=== PATIENT | female | born 1955 | race African-American/Black ===

== ENCOUNTER → 2017-01-05 | Outpatient (CLI) | payer MEDICARE, MEDICAID ==
[~2017-01-05] MED LIST: BACT800T5 PO; FLUT1SPR9 EACH NARE; HYDR25TA5 PO; IBUP-232 PO; LISI-519 PO; PANT40TA3 PO; TIZA2CAP3 PO; TRAM50TA PO
[2017-01-05 12:19] LABS: ANION GAP 4 MEQ/L (5-15); AST (GOT) 18 U/L (15-37); BICARBONATE 35.4 MEQ/L (21.0-32.0); BLOOD UREA NITROGEN 13 MG/DL (7-18); CHLORIDE 104 MEQ/L (98-107); GLOMERULAR FILTRATION RATE 64 ML/MIN (>89); GLUCOSE,FASTING 87 MG/DL (74-99); POTASSIUM 3.4 MEQ/L (3.5-5.1); SODIUM (NA) 143 MEQ/L (136-145)
[2017-01-05 12:31] LABS: ALKALINE PHOSPHATASE 98 U/L (45-117); ALT (GPT) 28 U/L (10-53); FREE T4 0.88 NG/DL (0.76-1.46); HDL CHOLESTEROL 74.7 MG/DL (40.0-60.0); LDL CHOLESTEROL 97 MG/DL (0-99); TOTAL BILIRUBIN ADULT 0.2 MG/DL (0.2-1.0)
== END ==
LOC: CLAB 11:21
DX: E04.9 Nontoxic goiter, unspecified (principal); R73.03 Prediabetes
CPT/HCPCS: 36415; 80053; 80061; 84439; 84443

== ENCOUNTER 2018-01-19 01:04 | Observation (INO) | payer MEDICARE, MEDICAID ==
[~2018-01-19] VITALS: Ht 154.9 cm; Wt 65.0 kg
[2018-01-19 01:08] VITALS: BP 185/93; PULSE 79; RESP 20; TEMP 98.2; O2SAT 95
--- NOTE | 2018-01-19 01:16 | PD ---
HPI . CP and left arm pain Chief Complaint: Respiratory Symptoms Time Seen by Provider: 01:10 Travel History International Travel<30 days: No Contact w/Intl Traveler<30days: No Traveled to known affect area: No History of Present Illness HPI Pt has COPD Hx and now arrive to ER complaining of CP and left arm numbness and leg numbess and SOB , recently arrived to [place] from [place] via a 20 [address] train ride, pt has radiating pain left sided and CP , she says she was told it was pinched nerves, but not responding to OTC meds . PFSH Past Medical History Arthritis: Yes (RA) Asthma: Yes Bipolar Disorder: Yes Cancer: No Cardiovascular Problems: No High Cholesterol: Yes COPD: Yes Diabetes: No Diminished Hearing: No Endocrine: No Gastrointestinal Disorders: Yes (PANCREATITIS) GERD: Yes Genitourinary: No Hepatitis: No Hiatal Hernia: No Hypertension: Yes Immune Disorder: Yes (RHEUMTAOID ARTHRITIS) Medical other: No Musculoskeletal: Yes (PROTRUDING DISK IN BACK) Neurologic: Yes (NUMBNESS IN HANDS; TINGLING IN LEGS & FEET ) Psychiatric: Yes (BIPOLAR ) Respiratory: Yes (COPD) Immunizations Current: Yes Migraines: Yes Pancreatitis: Yes Thyroid Disease: No Tetanus Vaccination: > 5 Years Influenza Vaccination: No PNEUMOCCOCAL Vaccine (Year): 2 ?: Not Menopausal: Yes Tubal Ligation: Yes Past Surgical History Abdominal Surgery: No AICD: No Body Medical Devices: NONE Cardiac Surgery: No Ear Surgery: No Endocrine Surgery: No Eye Surgery: No Genitourinary Surgery: No Gynecologic Surgery: Yes (1975 ) Joint Replacement: No Neurologic Surgery: No Oral Surgery: No Pacemaker: No Thoracic Surgery: No Family History Family Myocardial Infarction: Yes Social History Alcohol Use: No Tobacco Use: Yes ("1 PACK PER WEEK") Substance Use: Yes (HX OF CRACK, MARIJUANA,) Allergies-Medications (Allergen,Severity, Reaction): Coded Allergies: bee venom protein (honey bee) (Unverified Allergy, Intermediate, 03/15/17) throat swelling penicillin G (Unverified Allergy, Mild, HIVES, 03/15/17) Reported Meds & Prescriptions Reported Meds & Active Scripts Active Flonase Allergy Relief Children Nasal [place] (Fluticasone Nasal [place]) 50 Mcg/ Act [place] 2 [place] EACH NARE DAILY 50 mcg/spray Reported Hydrochlorothiazide 25 Mg Tab 25 Mg PO DAILY Lisinopril 5 Mg Tab 5 Mg PO DAILY Pantoprazole (Pantoprazole Sodium) 40 Mg Tab 40 Mg PO DAILY Tramadol (Tramadol HCl) 50 Mg Tab 50 Mg PO BID PRN Tizanidine (Tizanidine HCl) 2 Mg Cap 2 Mg PO TID Physical Exam Narrative General: No fatigue, weakness, fever, or chills. Recently traveled from [place] by training. HEENT: No [place], no vision changes, no nasal congestion or drainage, no dysphasia CV: Continues to have chest pain as stated above. Nothing makes pain better or worse. RESP: History of COPD, mild dyspnea, no wheeze. History of COPD and current smoker. GI: No nausea, vomiting, bowel changes, diarrhea, constipation, pain, distention , melena, or blood in the stool. : No dysuria, urgency, frequency EXT: No lower leg edema MS: Left arm, shoulder, and cervical pain, recently diagnoses with possible pinched nerve. No recent injury or change in ROM NEURO: No difficulty with balance, LOC, or motor/sensory deficits PSYCH: No anxiety, depression, or suicidal ideation SKIN: No rashes, no concerning lesions Data Data Last Documented VS Orders Orders Complete Blood Count With Diff (01/19/18 01:16) Comprehensive Metabolic Panel (01/19/18 01:16) Creatine Kinase (Cpk) (01/19/18 01:16) Ckmb (Isoenzyme) Profile (01/19/18 01:16) Troponin I (01/19/18 01:16) Lipase (01/19/18 01:16) Urinalysis - C+S If Indicated (01/19/18 01:16) D-Dimer (01/19/18 01:16) Ketorolac Inj (Toradol Inj) (01/19/18 01:45) Famotidine Inj (Pepcid Inj) (01/19/18 01:45) CKMB (01/19/18 01:45) CKMB% (01/19/18 01:45) Admit Order (Ed Use Only) (01/19/18 03:13) Place In Observation (01/19/18 03:15) Activity Bed Rest With Brp (01/19/18 03:15) Vital Signs (Adult) Q4H (01/19/18 03:15) Cardiac Rhythm .As Directed (01/19/18 03:15) Notify Dr: Other .PRN (01/19/18 03:15) Notify DrVinnie Parameters (01/19/18 03:15) Resp Oxygen Nasal Cannula (01/19/18 ) Ckmb (Isoenzyme) Profile (01/19/18 03:15) Ckmb (Isoenzyme) Profile (01/19/18 06:15) Troponin I (01/19/18 03:15) Troponin I (01/19/18 06:15) ^ Obtain (01/19/18 03:15) Sodium Chloride 0.9% Flush (Ns Flush) (01/19/18 03:15) Sodium Chloride 0.9% Flush (Ns Flush) (01/19/18 09:00) Field Operations Supervisor / Telemetry SLOAN.Q8H (01/19/18 03:15) Labs Laboratory Tests Test 01/19/18 01:45 White Blood Count 8.7 TH/MM3 Red Blood Count 4.44 MIL/MM3 Hemoglobin 12.5 GM/DL Hematocrit 37.1 % Mean Corpuscular Volume 83.5 FL Mean Corpuscular Hemoglobin 28.1 PG Mean Corpuscular Hemoglobin Concent 33.6 % Red Cell Distribution Width 14.2 % Platelet Count 296 TH/MM3 Mean Platelet Volume 8.0 FL Neutrophils (%) (Auto) 69.4 % Lymphocytes (%) (Auto) 23.8 % Monocytes (%) (Auto) 5.7 % Eosinophils (%) (Auto) 0.5 % Basophils (%) (Auto) 0.6 % Neutrophils # (Auto) 6.0 TH/MM3 Lymphocytes # (Auto) 2.1 TH/MM3 Monocytes # (Auto) 0.5 TH/MM3 Eosinophils # (Auto) 0.0 TH/MM3 Basophils # (Auto) 0.1 TH/MM3 CBC Comment DIFF FINAL Differential Comment D-Dimer Quantitative (PE/DVT) 0.48 MG/L FEU Blood Urea Nitrogen 15 MG/DL Creatinine 0.67 MG/DL Random Glucose 80 MG/DL Total Protein 7.7 GM/DL Albumin 3.8 GM/DL Calcium Level 10.0 MG/DL Alkaline Phosphatase 151 U/L Aspartate Amino Transf (AST/SGOT) 21 U/L Alanine Aminotransferase (ALT/SGPT) 26 U/L Total Bilirubin 0.5 MG/DL Sodium Level 139 MEQ/L Potassium Level 3.6 MEQ/L Chloride Level 104 MEQ/L Carbon Dioxide Level 25.0 MEQ/L Anion Gap 10 MEQ/L Estimat Glomerular Filtration Rate 108 ML/MIN Total Creatine Kinase 177 U/L Creatine Kinase MB 2.3 NG/ML Troponin I LESS THAN 0.02 NG/ML Lipase 67 U/L [facility] Medical Decision Making Medical Screen Exam Complete: Yes Emergency Medical Condition: Yes Medical Record Reviewed: Yes Interpretation(s) EKG NSR rate 79 normal except biphasic T wave in lead V2 Differential Diagnosis GENERAL: looks uncomfort SKIN: Warm and dry. HEAD: Atraumatic. Normocephalic. EYES: Pupils equal and round. No scleral icterus. No injection or drainage. ENT: No nasal bleeding or discharge. Mucous membranes pink and moist. NECK: Trachea midline. No JVD. CARDIOVASCULAR: Regular rate and rhythm. RESPIRATORY: No accessory muscle use. Clear to auscultation. Breath sounds equal bilaterally. GASTROINTESTINAL: Abdomen soft, non-tender, nondistended. Hepatic and splenic margins not palpable. MUSCULOSKELETAL: Extremities without clubbing, cyanosis, or edema. No obvious deformities. NEUROLOGICAL: Awake and alert. No obvious cranial nerve deficits. Motor grossly within normal limits. Five out of 5 muscle strength in the arms and legs. Normal speech. PSYCHIATRIC: Appropriate mood and affect; insight and judgment normal. Narrative Course ekg labs medication given for arm and neck pain , feels moderate relief and then admitted for CP and rule out with serial troponin Diagnosis Primary Impression: Chest pain Admitting Information Admitting Physician Requests: Observation Christ Hernandez MD Jan 19, 2018 01:16
[2018-01-19] MEDS ORDERED: FAMOTIDINE 20 MG/2 ML VIAL IV PUSH SCH (01:45)
[2018-01-19] MEDS ORDERED: KETOROLAC TROMETHAMINE 30 MG/ML (IVP) VIAL IV PUSH ONE (01:45)
[2018-01-19 01:51] LABS: BASOPHIL # 0.1 TH/MM3 (0-0.2); BASOPHIL % 0.6 % (0.0-2.0); EOSINOPHIL % 0.5 % (0.0-4.0); HEMATOCRIT 37.1 % (35.0-46.0); HEMOGLOBIN 12.5 GM/DL (11.6-15.3); LYMPH % 23.8 % (9.0-44.0); LYMPHOCYTE # 2.1 TH/MM3 (1.0-4.8); MEAN CELL VOLUME 83.5 FL (80.0-100.0); MEAN CORPUSCULAR HEMOGLOBIN 28.1 PG (27.0-34.0); MEAN CORPUSCULAR HGB CONC 33.6 % (32.0-36.0); MONO % 5.7 % (0.0-8.0); MONOCYTE # 0.5 TH/MM3 (0-0.9); NEUT % 69.4 % (16.0-70.0); PLATELET COUNT 296 TH/MM3 (150-450); RED BLOOD COUNT 4.44 MIL/MM3 (4.00-5.30); RED CELL DISTRIBUTION WIDTH 14.2 % (11.6-17.2); WHITE BLOOD COUNT 8.7 TH/MM3 (4.0-11.0)
[2018-01-19 02:17] LABS: ALBUMIN 3.8 GM/DL (3.4-5.0); ALT (GPT) 26 U/L (10-53); AST (GOT) 21 U/L (15-37); BLOOD UREA NITROGEN 15 MG/DL (7-18); CHLORIDE 104 MEQ/L (98-107); CREATININE 0.67 MG/DL (0.50-1.00); GLOMERULAR FILTRATION RATE 108 ML/MIN (>89); GLUCOSE,RANDOM 80 MG/DL (74-106); SODIUM (NA) 139 MEQ/L (136-145)
[2018-01-19 02:22] LABS: ALKALINE PHOSPHATASE 151 U/L (45-117); TOTAL BILIRUBIN ADULT 0.5 MG/DL (0.2-1.0); TOTAL PROTEIN 7.7 GM/DL (6.4-8.2); TROPONIN I LESS THAN 0.02 NG/ML (0.02-0.05)
[2018-01-19] MEDS ORDERED: SODIUM CHLORIDE 0.9% FLUSH 10 ML FLUSH IV FLUSH PRN (03:15)
[2018-01-19 03:19] VITALS: O2SAT 99
[2018-01-19 03:28] VITALS: BP 160/84; PULSE 64; RESP 18; O2SAT 98
[2018-01-19] MEDS ORDERED: ASPIRIN 81 MG CHEW TAB CHEW ONE (04:00)
[2018-01-19 04:56] LABS: BACTERIA, URINE RARE /hpf; BILIRUBIN, URINE NEG (NEG); BLOOD, URINE SMALL (NEG); GLUCOSE,URINE NEG (NEG); KETONE, URINE NEG (NEG); MUCUS URINE FEW /lpf (OCC); NITRITE,URINE NEG (NEG); SQUAMOUS EPITHELIAL CELL URINE 1 /hpf (0-5); URINE COLOR Straw (YELLW/STRAW); URINE LEUKOCYTE ESTERASE NEG (NEG)
[2018-01-19 05:21] LABS: TROPONIN I LESS THAN 0.02 NG/ML (0.02-0.05)
[2018-01-19 06:37] VITALS: BP 162/79; PULSE 69; RESP 18; O2SAT 98
--- NOTE | 2018-01-19 08:04 | HHI.HP ---
HPI Primary Care Physician Dr. Tyler Finn Chief Complaint Chest pain History of Present Illness 62 year old female with history of COPD, HLD, and RA presents to ER with multiple complaints. Onset of chest pain 2 months. Location substernal. Characterized as squeezing and tightness. Unsure if there is a radiation component due to current "pinched nerve" and x2 weeks of left arm, left shoulder , and left sided neck pain. Associated symptoms of dyspnea. No nausea, vomiting , of diaphoresis. No precipitating or relieving factors. Duration constant. While visiting in [place] recently seen in ER for similar complaints. Reports "multiple tests" completed. Cannot elaborate on type of testing, just remembers being told she has a 'pinched nerve." Unclear if cardiac testing completed while in [place]. Review of Systems General: No fatigue, weakness, fever, or chills. Recently traveled from [place] by training. HEENT: No [place], no vision changes, no nasal congestion or drainage, no dysphasia CV: Continues to have chest pain as stated above. Nothing makes pain better or worse. RESP: History of COPD, mild dyspnea, no wheeze. History of COPD and current smoker. GI: No nausea, vomiting, bowel changes, diarrhea, constipation, pain, distention , melena, or blood in the stool. : No dysuria, urgency, frequency EXT: No lower leg edema MS: Left arm, shoulder, and cervical pain, recently diagnoses with possible pinched nerve. No recent injury or change in ROM NEURO: No difficulty with balance, LOC, or motor/sensory deficits PSYCH: No anxiety, depression, or suicidal ideation SKIN: No rashes, no concerning lesions Past Family Social History Allergies: Coded Allergies: bee venom protein (honey bee) (Unverified Allergy, Intermediate, 03/15/17) throat swelling penicillin G (Unverified Allergy, Mild, HIVES, 03/15/17) Past Medical History COPD, GERD, rheumatoid arthritis, bipolar disorder, hyperlipidemia, pancreatitis , hypertension, migraines Past Surgical History None Reported Medications Reported Meds & Active Scripts Active medication list may not be accurate, patient poor historian. Medications below reported from ER note. Flonase Allergy Relief Children Nasal [place] (Fluticasone Nasal [place]) 50 Mcg/ Act [place] 2 [place] EACH NARE DAILY 50 mcg/spray Hydrochlorothiazide 25 Mg Tab 25 Mg PO DAILY Lisinopril 5 Mg Tab 5 Mg PO DAILY Pantoprazole (Pantoprazole Sodium) 40 Mg Tab 40 Mg PO DAILY Tramadol (Tramadol HCl) 50 Mg Tab 50 Mg PO BID PRN Tizanidine (Tizanidine HCl) 2 Mg Cap 2 Mg PO TID Active Ordered Medications Current Medications Medications (Trade) Dose Ordered Sig/Emerald Route Start Time Stop Time Status Last Admin (Pepcid Inj) 20 mg ONCE IV PUSH 01/19/18 01:45 01/19/18 01:47 (NS Flush) 2 ml UNSCH PRN IV FLUSH 01/19/18 03:15 (NS Flush) 2 ml BID IV FLUSH 01/19/18 09:00 Family History Noncontributory for early onset cardiovascular disease Social History Known hypertension hyperlipidemia. No coronary artery disease or diabetes. Current 1 pack day smoker. Past cardiac testing Unclear patient has had recent cardiac testing. Medical record reviewed. Elaine 03/04/11 1. No reversible perfusion defects seen to suggest ischemia. 2. Normal ejection fraction. 3. Matched defect at the apex could be related to apical thinning versus old small infarct. Physical Exam Vital Signs Vital Signs Date Time Temp Pulse Resp B/P (MAP) Pulse Ox O2 Delivery O2 Flow Rate FiO2 01/19/18 06:37 69 18 162/79 (106) 98 Nasal Cannula 2.00 01/19/18 03:28 64 18 160/84 (109) 98 Nasal Cannula 2.00 01/19/18 03:19 99 Nasal Cannula 2.00 01/19/18 01:15 78 20 96 Nasal Cannula 2.00 01/19/18 01:08 98.2 79 20 185/93 (123) 95 Physical Exam GENERAL: Alert WN, NAD, -[place]ian female, appears to be in mild pain, poor historian HEAD: NC, AT CV: RRR, without murmur, rub, or gallop, no JVD, no S3-S4. Chest pain male with light palpation of stethoscope. RESP: Poor air movement throughout bilateral, no crackles, rhonchi, symmetrical chest rise, nonlabored, able to speak in full sentences ABD: Soft, NT, ND, no masses, positive bowel tones EXT: Pulses +2x4, no dependent edema MS: Normal tone x4 extremities, nontender, no obvious deformities, full range of motion NEURO: CN II through CN XII grossly intact, motor strength 5/5 PSYCH: A+O x3, flat affect, appropriate speech, speaks softly, appropriate insight and judgment SKIN: Normal turgor, normal texture Laboratory Laboratory Tests Test 01/19/18 01:45 01/19/18 04:24 01/19/18 04:36 01/19/18 06:42 White Blood Count 8.7 Red Blood Count 4.44 Hemoglobin 12.5 Hematocrit 37.1 Mean Corpuscular Volume 83.5 Mean Corpuscular Hemoglobin 28.1 Mean Corpuscular Hemoglobin Concent 33.6 Red Cell Distribution Width 14.2 Platelet Count 296 Mean Platelet Volume 8.0 Neutrophils (%) (Auto) 69.4 Lymphocytes (%) (Auto) 23.8 Monocytes (%) (Auto) 5.7 Eosinophils (%) (Auto) 0.5 Basophils (%) (Auto) 0.6 Neutrophils # (Auto) 6.0 Lymphocytes # (Auto) 2.1 Monocytes # (Auto) 0.5 Eosinophils # (Auto) 0.0 Basophils # (Auto) 0.1 CBC Comment DIFF FINAL Differential Comment D-Dimer Quantitative (PE/DVT) 0.48 Blood Urea Nitrogen 15 Creatinine 0.67 Random Glucose 80 Total Protein 7.7 Albumin 3.8 Calcium Level 10.0 Alkaline Phosphatase 151 Aspartate Amino Transf (AST/SGOT) 21 Alanine Aminotransferase (ALT/SGPT) 26 Total Bilirubin 0.5 Sodium Level 139 Potassium Level 3.6 Chloride Level 104 Carbon Dioxide Level 25.0 Anion Gap 10 Estimat Glomerular Filtration Rate 108 Total Creatine Kinase 177 170 Creatine Kinase MB 2.3 2.2 Troponin I LESS THAN 0.02 LESS THAN 0.02 Lipase 67 Urine Color Straw Urine Turbidity CLEAR Urine pH 6.0 Urine Specific [place] 1.004 Urine Protein NEG Urine Glucose (UA) NEG Urine Ketones NEG Urine Occult Blood SMALL Urine Nitrite NEG Urine Bilirubin NEG Urine Urobilinogen LESS THAN 2 Urine Leukocyte Esterase NEG Urine RBC 1 Urine WBC 1 Urine Squamous Epithelial Cells 1 Urine Bacteria RARE Urine Mucus FEW Microscopic Urinalysis Comment CULT NOT INDICATED Result Diagram: 01/19/18 0145 01/19/18 0145 Imaging Last 48 hours Impressions Chest X-Ray 01/19/18 0000 Signed Impressions: CONCLUSION: 1. No acute cardiopulmonary disease. Course EKG NSR, no st t segment changes Caprini VTE Risk Assessment Caprini VTE Risk Assessment: Mod/High Risk (score >= 2) Caprini Risk Assessment Model Point Value = 1 Point Value = 2 Point Value = 3 Point Value = 5 Age 41-60 Minor surgery BMI > 25 kg/m2 Swollen legs Varicose veins or History of unexplained or recurrent spontaneous Oral contraceptives or hormone replacement Sepsis (< 1 month) Serious lung disease, including pneumonia (< 1 month) Abnormal pulmonary function Acute myocardial infarction Congestive heart failure (< 1 month) History of inflammatory bowel disease Medical patient at bed rest Age 61-74 Arthroscopic surgery Major open surgery (> 45 min) Laparoscopic surgery (> 45 min) Malignancy Confined to bed (> 72 hours) Immobilizing plaster cast Central venous access Age >= 75 History of VTE Family history of VTE Factor V Leiden Prothrombin [id number] Lupus anticoagulant Anticardiolipin antibodies Elevated serum homocysteine Heparin-induced thrombocytopenia Other congenital or acquired thrombophilia Stroke (< 1 month) Elective arthroplasty Hip, pelvis, or leg fracture Acute spinal cord injury (< 1 month) Prophylaxis Regimen Total Risk Factor Score Risk Level Prophylaxis Regimen 0-1 Low Early ambulation 2 Moderate Order ONE of the following: *Sequential Compression Device (SCD) *Heparin 5000 units SQ BID 3-4 Higher Order ONE of the following medications: *Heparin 5000 units SQ TID *Enoxaparin/Lovenox 40 mg SQ daily (WT < 150 kg, CrCl > 30 mL/min) *Enoxaparin/Lovenox 30 mg SQ daily (WT < 150 kg, CrCl > 10-29 mL/min) *Enoxaparin/Lovenox 30 mg SQ BID (WT < 150 kg, CrCl > 30 mL/min) AND/OR *Sequential Compression Device (SCD) 5 or more Highest Order ONE of the following medications: *Heparin 5000 units SQ TID (Preferred with Epidurals) *Enoxaparin/Lovenox 40 mg SQ daily (WT < 150 kg, CrCl > 30 mL/min) *Enoxaparin/Lovenox 30 mg SQ daily (WT < 150 kg, CrCl > 10-29 mL/min) *Enoxaparin/Lovenox 30 mg SQ BID (WT < 150 kg, CrCl > 30 mL/min) AND *Sequential Compression Device (SCD) Assessment and Plan Assessment and Plan #1 Atypical chest pain-admitted to chest pain center. ACS protocol initiated in ER, currently ruled out with 2 sets of EKGs and cardiac enzymes. Third troponin and EKG pending. Continue to monitor on telemetry. Seen and evaluated with Dr. Stan Anaya. Albuterol treatment 1 dose now, obtain chest x-ray, and provide Solu-Medrol 25 mg 1 dose now. Proceed with Lexiscan later this morning. Discomfort easily reproduced and made worse with repositioning in bed. Toradol 30 mg IV previously administered. Anna Herrera Jan 19, 2018 08:04
[2018-01-19] MEDS: RESP: ALBUTEROL 2.5 MG/3 ML NEB (SCH) NEB ×3 (08:12→16:05)
[2018-01-19] MEDS ORDERED: methylPREDNISolone SOD SUCC 125 MG/2 ML VIAL IV PUSH ONE (08:15)
[2018-01-19] MEDS ORDERED: RESP: ALBUTEROL 2.5 MG/3 ML NEB (PRN) NEB (08:15)
[2018-01-19 08:22] LABS: TROPONIN I LESS THAN 0.02 NG/ML (0.02-0.05)
[2018-01-19 08:24] VITALS: O2SAT 97
[2018-01-19 08:50] VITALS: BP 148/81; PULSE 88; RESP 18; O2SAT 96
--- NOTE | 2018-01-19 08:50 | RADRPT ---
EXAM DATE: 01/19/2018 8:16 AM EDT AGE/SEX: 62 years / Female INDICATIONS: Chest pain. CLINICAL DATA: This is the patient's initial encounter. Patient reports that signs and symptoms have been present for 1 day and indicates a pain score of 3/10. MEDICAL/SURGICAL HISTORY: Chronic obstructive pulmonary disease. Hypertension. Gastroesophage al reflux disease. None. Bilateral hip replacement. COMPARISON: [facility] – [place], CHEST SINGLE AP, 04/21/2014. . FINDINGS: No new focal pleural or parenchymal opacities. Cardiomediastinal contours are within normal limits gi reji portable technique. Bony thorax is intact. CONCLUSION: 1. No acute cardiopulmonary disease. Electronically signed by: Papo Espinal MD 01/19/2018 8:49 AM EDT
[2018-01-19] MEDS ORDERED: SODIUM CHLORIDE 0.9% FLUSH 10 ML FLUSH IV FLUSH SCH (09:00)
[2018-01-19] MEDS ORDERED: NITROGLYCERIN 0.4 MG SL 25 TABS/BTL SL PRN (09:45)
[2018-01-19] MEDS ORDERED: REGADENOSON INJ 0.4 MG/5 ML SYR ONE (12:41)
--- NOTE | 2018-01-19 14:42 | RADRPT ---
EXAM DATE: 01/19/2018 2:15 PM EDT AGE/SEX: 62 years / Female INDICATIONS:Angina. . Left chest pain and leg numbness with dyspnea. CLINICAL DATA: This is the patient's initial encounter. Patient reports that signs and symptoms have been present for 1 day and indicates a pain score of 5/10. MEDICAL/SURGICAL HISTORY: Chronic obstructive pulmonary disease. Hypercholesterolemia. Hypert ension. Smoker. Tubal ligation. COMPARISON: No prior exams available for comparison. No external comparison. DOSE: 26.2 mCi Tc 99m Myoview at stress 8.4 mCi [id number] at rest 0.4 mg Lexiscan STRESS SYMPTOMS: Short of breath and flush. EJECTION FRACTION: >70 % TECHNIQUE: The patient underwent pharmacologic stress with infusion of prescribed dose. Continuous ECG tracing was monitored during stress. Gated SPECT imaging was performed after stress and conventi onal SPECT imaging was performed at rest. The examination was performed on a SPECT/CT scanner, both attenuation and non-corrected datasets were reviewed. FINDINGS: Distribution: The maximum perfused segment at stress is in the anterolateral wall. Perfusion Study: The pattern of perfusion at stress is within normal limits. Gated Study: There are intact wall motion and wall thickening without hypokinetic or dyskinetic segm ents. The ejection fraction is calculated at >70%. RISK CATEGORY: Low (<1% Annual Motality Rate) CONCLUSION: 1. No reversible perfusion defects to indicate stress induced myocardial ischemia identified. Electronically signed by: Aneesh Medina MD 01/19/2018 2:41 PM EDT
--- NOTE | 2018-01-19 14:52 | HHI.DCPOC ---
Discharge Care Plan Diagnosis: (1) Musculoskeletal chest pain (2) Tobacco abuse (3) COPD (chronic obstructive pulmonary disease) Goals to Promote Your Health * To prevent worsening of your condition and complications * To maintain your health at the optimal level Directions to Meet Your Goals Take your medications as prescribed Follow your dietary instruction Follow activity as directed Keep your appointments as scheduled Take your immunizations and boosters as scheduled If your symptoms worsen call your PCP, if no PCP go to Urgent Care Center or Emergency Room Smoking is Dangerous to Your Health. Avoid second hand smoke Call the 24-hour hour crisis hotline for domestic abuse at Anna Herrera Jan 19, 2018 14:52
--- NOTE | 2018-01-20 08:11 | EKG ---
Date Performed: 01/19/2018 Time Performed: 04:25:24 PTAGE: 62 years EKG: Sinus rhythm NORMAL ECG PREVIOUS TRACING : 07/11/2016 11.59 Since previous tracing, no significant change noted DOCTOR: Stan Anaya Interpretating Date/Time 01/20/2018 08:09:09
--- NOTE | 2018-01-20 08:11 | EKG ---
Date Performed: 01/19/2018 Time Performed: 07:45:39 PTAGE: 62 years EKG: Sinus rhythm NORMAL ECG NO PREVIOUS TRACING DOCTOR: Stan Anaya Interpretating Date/Time 01/20/2018 08:08:59
--- NOTE | 2018-01-20 08:12 | EKG ---
Date Performed: 01/19/2018 Time Performed: 01:11:42 PTAGE: 62 years EKG: Sinus rhythm NORMAL ECG NO PREVIOUS TRACING DOCTOR: Stan Anaya Interpretating Date/Time 01/20/2018 08:09:15
--- NOTE | 2018-01-20 08:16 | TR ---
Date Performed: 01/19/2018 Time Performed: 12:51:35 DOCTOR: Stan Anaya DRUG LIST: CLINICAL HISTORY: REASON FOR TEST: REASON FOR ENDING: OBSERVATION: CONCLUSION: COMMENTS: Lexiscan stress test was performed under standard four minute protocol. Radionuclide was injected one minute prior to ending the test. No electrocardiographic abormalities were present t o suggest ischemia. Nuclear imaging and interpretation are pending.
[2018-01-20] MEDS ORDERED: PNEUMOCOCCAL POLYVALENT INJ 25 MCG/0.5 ML SYR IM ONE (09:00)
== END 2018-01-19 18:03 | disposition home or self-care (01) ==
LOC: NEPE 01:04 → NEDA 03:16 → NEPGCP 14:58
PROVIDERS: ADMIT Internal Medicine Cardiovascular Disease; ATTEND Internal Medicine Cardiovascular Disease
DX: R07.89 Other chest pain (principal); R06.02 Shortness of breath; R20.0 Anesthesia of skin; M79.602 Pain in left arm; M54.2 Cervicalgia; I10 Essential (primary) hypertension; J44.9 Chronic obstructive pulmonary disease, unspecified; E78.5 Hyperlipidemia, unspecified; K21.9 Gastro-esophageal reflux disease without esophagitis; M06.9 Rheumatoid arthritis, unspecified; F31.9 Bipolar disorder, unspecified; F17.200 Nicotine dependence, unspecified, uncomplicated; Z79.899 Other long term (current) drug therapy
CPT/HCPCS: 71045; 78452; 80053; 81001; 82550; 82552; 83690; 84484; 85025; 85379; 93005; 93017; 94664; 96374; 96375; 99285; A9502; G0378; J1885; J2785; J2930; J7613